=== PATIENT | male | born 1950 | race Caucasian/White ===

== ENCOUNTER → 2016-10-21 | Outpatient (CLI) | payer OTHER ==
[~2016-10-21] MED LIST: AMBIEN 5 MG TABL5 M1 PO; ASPIRIN325 PO; AVODART0.5 MG PO; DILTIAZEM 24HR120 M2 PO; ELIQUIS5 MG PO; EXCEDRIN CAPLE1 EACH PO; LOPRESSOR50 PO; METOPROLOL SUCC50 MG PO; PROTOPIC30 GM TOP; UNK B/P MED
== END ==
LOC: NUC 08:05
DX: I48.0 Paroxysmal atrial fibrillation (principal)